=== PATIENT | male | born 1985 | race Caucasian/White ===

== ENCOUNTER 2021-12-12 14:18 | Emergency (ER) | payer SELFPAY ==
[2021-12-12 16:36] LABS: HEMOGLOBIN 16.7 gm/dl (14.0-17.5); RED BLOOD COUNT 5.66 M/UL (4.20-5.50); WHITE BLOOD COUNT 8.7 K/UL (4.5-11.0)
[2021-12-12 17:01] LABS: BUN/CREATININE RATIO 20 (0-10)
[2021-12-12] MEDS ORDERED: ZOFRAN ODT 4 MG4 MG SL (18:23)
[2021-12-12] MEDS ORDERED: FLOMAX0.4 MG PO (18:23)
[2021-12-12] MEDS ORDERED: HYDROCODON-ACE1 EAC4 PO (18:23)
== END 2021-12-12 18:30 | disposition home or self-care (01) ==
LOC: ER1 14:18
PROVIDERS: Physician Assistant Medical
DX: N13.2 Hydronephrosis with renal and ureteral calculous obstruction (principal); E11.9 Type 2 diabetes mellitus without complications
CPT/HCPCS: 80053; 81001; 82009; 82962; 83605; 85025; 87040; 99284; Q9967